=== PATIENT | female | born 1950 | race Caucasian/White ===

== ENCOUNTER 2016-03-22 10:06 | Inpatient (IN) | payer BC ==
[~2016-03-22] VITALS: Ht 165.1 cm; Wt 145.0 kg
[~2016-03-22 10:06] MED LIST: Colace PO; Diovan HCT 160/25 PO; Glucophage PO; Glucotrol XL PO; JANUVIA100 MG PO; LANTUS 3 M100 UNITS1 SC; Levothroid,Synthroid PO; Lovenox SC; METFORMIN HCL1000 MG PO; Milk Of Magnesia,MOM PO; NOVOLOG PE100 UNITS/ SC; PROAIR RESPICL90 MCG IH; Proventil,Ventolin H IH; VERAPAMIL ER200 MG PO; VERELAN PM PO; Vitamin D PO; Zocor PO
[2016-03-22 11:37] LABS: EOSINOPHIL (%) 2.2 % (0-5); EOSINOPHIL COUNT 0.1 K/uL (0-0.3); HEMATOCRIT 40.4 % (36.0-46.0); LYMPHOCYTE COUNT 0.7 K/uL (1.0-2.8); MCH 29.5 PG (29.0-34.0); MCHC 30.7 G/DL (30.0-36.0); MONOCYTE (%) 6.5 % (3-12); MONOCYTE COUNT 0.3 K/uL (0-0.8); NEUTROPHIL (%) 75.1 % (45-76); NEUTROPHIL COUNT 3.5 K/uL (1.8-6.4); PLATELET COUNT 99 K/uL (156-360); RBC DIS.WIDTH-CV 15.8 % (11.8-14.6); RBC DIS.WIDTH-SD 53.3 % (39-53); RED BLOOD COUNT 4.21 M/uL (3.80-5.20); WHITE BLOOD COUNT 4.6 K/uL (4.1-10.2)
[2016-03-22 11:47] LABS: CHLORIDE 99 mEq/L (99-109); SODIUM 138 mEq/L (136-147)
[2016-03-22 11:50] LABS: GLUCOSE 270 mg/dL (70-99)
[2016-03-22 11:51] LABS: ANION GAP 9 MEQ/L (2-14)
[2016-03-22 11:52] LABS: TOTAL BILIRUBIN 0.4 mg/dL (0.0-1.0)
[2016-03-22 11:53] LABS: ALKALINE PHOSPHATASE 75 IU/L (3-129); GFR ESTIMATE (CALCULATED) > 59 mL/min/
[2016-03-22 11:54] LABS: UREA NITROGEN (BUN) 14 mg/dL (9-23)
[2016-03-22 11:58] LABS: TROP-I INTERPRETATION NEGATIVE; TROPONIN-I < 0.01 ng/mL (0.0-0.30)
[2016-03-22] MEDS ORDERED: DIOVAN HCT 11 TABLE1 PO (14:07)
[2016-03-22] MEDS ORDERED: LANTUS 3 M100 UNITS1 SC (14:08)
[2016-03-22] MEDS ORDERED: LEVOTHYROXINE200 MC1 PO (14:09)
[2016-03-22] MEDS ORDERED: LEVOTHYROXINE25 MCG PO (14:10)
[2016-03-22] MEDS ORDERED: VERAPAMIL ER200 MG PO (14:11)
[2016-03-22] MEDS ORDERED: VITAMIN D-3 401 EACH PO (14:11)
[2016-03-22] MEDS ORDERED: SIMVASTATIN20 MG PO (14:12)
[2016-03-22] MEDS ORDERED: IBUPROFEN800 MG PO (14:12)
[2016-03-22] MEDS ORDERED: LASIX20 MG PO (14:13)
[2016-03-22] MEDS ORDERED: POTASSIUM CHLO10 ME4 PO (14:16)
[2016-03-22] MEDS ORDERED: REFRESH TEARS15 ML BOTH EYES (14:16)
[2016-03-22] MEDS ORDERED: Eye Drops BOTH EYES (14:18)
[2016-03-22] MEDS ORDERED: TYLENOL EXTRA500 MG PO (14:22)
[2016-03-22 17:20] VITALS: BP 149/83
[2016-03-22 20:02] VITALS: BP 177/74
[2016-03-23] VITALS: BP 136/77
[2016-03-23 03:41] LABS: INFLUENZA A VIRAL ANTIGEN NEGATIVE
[2016-03-23 03:42] LABS: INFLUENZA B VIRAL ANTIGEN NEGATIVE
[2016-03-23 04:00] VITALS: BP 137/63
[2016-03-23 08:14] LABS: INTERNAL CONTROL VALID? YES
[2016-03-23 08:55] LABS: EOSINOPHIL (%) 0 % (0-5); HEMATOCRIT 40.6 % (36.0-46.0); IMMATURE GRANULOCYTE (%) 0.2 % (0.0-0.7); LYMPHOCYTE COUNT 0.7 K/uL (1.0-2.8); MCHC 30.5 G/DL (30.0-36.0); MCV 95.1 FL (83-99); MEAN PLAT.VOLUME 10.9 uM^3 (9.5-12.4); MONOCYTE (%) 4.6 % (3-12); MONOCYTE COUNT 0.2 K/uL (0-0.8); NEUTROPHIL (%) 82.7 % (45-76); NEUTROPHIL COUNT 4.3 K/uL (1.8-6.4); PLATELET COUNT 121 K/uL (156-360); RBC DIS.WIDTH-CV 15.8 % (11.8-14.6); RBC DIS.WIDTH-SD 55.2 % (39-53); RED BLOOD COUNT 4.27 M/uL (3.80-5.20); WHITE BLOOD COUNT 5.2 K/uL (4.1-10.2)
[2016-03-23 09:20] LABS: ANION GAP 9 MEQ/L (2-14); CHLORIDE 99 MEQ/L (99-109); GFR ESTIMATE (CALCULATED) > 59 mL/min/; GLUCOSE 218 mg/dL (70-99); POTASSIUM 4.4 MEQ/L (3.7-5.4); SAMPLE HEMOLYSIS CHECK 0; SAMPLE ICTERIC CHECK 0; SAMPLE LIPEMIA CHECK 0; SODIUM 139 MEQ/L (136-147); UREA NITROGEN (BUN) 15 mg/dL (9-23)
[2016-03-23 10:00] VITALS: BP 145/71
[2016-03-23 12:00] VITALS: BP 133/67
[2016-03-23 16:00] VITALS: BP 137/71
[2016-03-23 19:33] VITALS: BP 131/60
[2016-03-24] VITALS: BP 153/79
[2016-03-24 04:00] VITALS: BP 131/60
[2016-03-24 07:26] LABS: ANION GAP 10 MEQ/L (2-14); CHLORIDE 100 MEQ/L (99-109); GFR ESTIMATE (CALCULATED) > 59 mL/min/; GLUCOSE 196 mg/dL (70-99); POTASSIUM 4.7 MEQ/L (3.7-5.4); SAMPLE HEMOLYSIS CHECK 0; SAMPLE ICTERIC CHECK 0; SAMPLE LIPEMIA CHECK 0; SODIUM 142 MEQ/L (136-147); UREA NITROGEN (BUN) 20 mg/dL (9-23)
[2016-03-24 07:31] VITALS: BP 145/73
[2016-03-24 08:09] LABS: POINT-OF-CARE METER ID UU14174225
[2016-03-24 12:15] VITALS: BP 142/71
[2016-03-24 12:44] LABS: ABS NEUTROPHIL COUNT 3.65; DELETE MACHINE DIFF? YES; MCH 29.6 PG (29.0-34.0); MCHC 31.3 G/DL (30.0-36.0); MCV 94.6 FL (83-99); MEAN PLAT.VOLUME 11.6 uM^3 (9.5-12.4); PLAT.SUFFICIENCY ADEQUATE; PLATELET COUNT 174 K/uL (156-360); RBC DIS.WIDTH-CV 15.9 % (11.8-14.6); RBC DIS.WIDTH-SD 54.7 % (39-53); RED BLOOD COUNT 4.23 M/uL (3.80-5.20); USER ID STC; WHITE BLOOD COUNT 4.1 K/uL (4.1-10.2)
[2016-03-24 15:36] VITALS: BP 133/58
[2016-03-24 20:00] VITALS: BP 169/63
[2016-03-25] VITALS: BP 156/75
[2016-03-25 04:00] VITALS: BP 134/64
[2016-03-25 07:37] LABS: ANION GAP 8 MEQ/L (2-14); CHLORIDE 98 MEQ/L (99-109); GFR ESTIMATE (CALCULATED) > 59 mL/min/; GLUCOSE 225 mg/dL (70-99); MAGNESIUM 2.4 mg/dl (1.3-2.7); POTASSIUM 4.9 MEQ/L (3.7-5.4); SAMPLE HEMOLYSIS CHECK 0; SAMPLE ICTERIC CHECK 0; SAMPLE LIPEMIA CHECK 0; SODIUM 139 MEQ/L (136-147); UREA NITROGEN (BUN) 24 mg/dL (9-23)
[2016-03-25 07:41] LABS: EOSINOPHIL (%) 0 % (0-5); HEMATOCRIT 43.4 % (36.0-46.0); IMMATURE GRANULOCYTE (%) 0.4 % (0.0-0.7); LYMPHOCYTE COUNT 1.1 K/uL (1.0-2.8); MCH 28.3 PG (29.0-34.0); MCHC 29.5 G/DL (30.0-36.0); MEAN PLAT.VOLUME 10.4 uM^3 (9.5-12.4); MONOCYTE COUNT 0.2 K/uL (0-0.8); NEUTROPHIL (%) 82.7 % (45-76); NEUTROPHIL COUNT 6.6 K/uL (1.8-6.4); PLATELET COUNT 134 K/uL (156-360); RBC DIS.WIDTH-CV 15.8 % (11.8-14.6); RBC DIS.WIDTH-SD 55.9 % (39-53); RED BLOOD COUNT 4.52 M/uL (3.80-5.20); WHITE BLOOD COUNT 7.9 K/uL (4.1-10.2)
[2016-03-25 08:12] VITALS: BP 124/62
[2016-03-25 08:18] LABS: POINT-OF-CARE METER ID UU14174225
[2016-03-25 12:09] VITALS: BP 126/62
[2016-03-25 15:59] VITALS: BP 150/80
[2016-03-25 17:27] LABS: POINT-OF-CARE METER ID UU14174225
[2016-03-25 19:41] VITALS: BP 161/90
[2016-03-25 21:05] LABS: POINT-OF-CARE METER ID UU14174225
[2016-03-26] VITALS: BP 141/76
[2016-03-26 04:00] VITALS: BP 144/80
[2016-03-26 07:34] VITALS: BP 134/75
[2016-03-26 07:40] LABS: POINT-OF-CARE METER ID UU14174225
[2016-03-26 11:12] LABS: POINT-OF-CARE METER ID UU14174225
[2016-03-26] MEDS ORDERED: ADVAIR HFA120 INHALA IH (11:15)
[2016-03-26] MEDS ORDERED: PREDNISONE10 MG PO (11:16)
[2016-03-26] MEDS ORDERED: LEVAQUIN500 MG PO (11:16)
[2016-03-26 11:20] VITALS: BP 139/74
[2016-03-26 15:55] VITALS: BP 173/84
[2016-03-26 19:51] VITALS: BP 146/78
[2016-03-26 20:34] LABS: POINT-OF-CARE METER ID UU14174225
[2016-03-27] VITALS: BP 133/63
[2016-03-27 04:02] VITALS: BP 121/67
[2016-03-27 07:59] VITALS: BP 143/72
[2016-03-27 11:54] VITALS: BP 148/82
[2016-03-27 16:40] VITALS: BP 152/82
[2016-03-27 20:00] VITALS: BP 160/743
[2016-03-27 22:14] LABS: POINT-OF-CARE METER ID UU14174225
[2016-03-28] VITALS: BP 140/63
[2016-03-28 04:27] VITALS: BP 154/78
[2016-03-28 07:31] LABS: EOSINOPHIL (%) 0 % (0-5); HEMATOCRIT 45.3 % (36.0-46.0); IMMATURE GRANULOCYTE (%) 0.1 % (0.0-0.7); MCH 27.7 PG (29.0-34.0); MCHC 29.6 G/DL (30.0-36.0); MCV 93.6 FL (83-99); MEAN PLAT.VOLUME 10.7 uM^3 (9.5-12.4); MONOCYTE (%) 3.7 % (3-12); MONOCYTE COUNT 0.3 K/uL (0-0.8); NEUTROPHIL (%) 85.3 % (45-76); NEUTROPHIL COUNT 7.8 K/uL (1.8-6.4); PLATELET COUNT 129 K/uL (156-360); RBC DIS.WIDTH-CV 15.3 % (11.8-14.6); RBC DIS.WIDTH-SD 52.4 % (39-53); RED BLOOD COUNT 4.84 M/uL (3.80-5.20); WHITE BLOOD COUNT 9.1 K/uL (4.1-10.2)
[2016-03-28 08:03] LABS: ANION GAP 6 MEQ/L (2-14); CHLORIDE 96 MEQ/L (99-109); GFR ESTIMATE (CALCULATED) > 59 mL/min/; GLUCOSE 188 mg/dL (70-99); SAMPLE HEMOLYSIS CHECK 0; SAMPLE ICTERIC CHECK 0; SAMPLE LIPEMIA CHECK 0; SODIUM 138 MEQ/L (136-147); UREA NITROGEN (BUN) 28 mg/dL (9-23)
[2016-03-28 08:04] VITALS: BP 114/65
[2016-03-28 10:50] LABS: POINT-OF-CARE METER ID UU14174225
[2016-03-28 11:07] VITALS: BP 141/72
[2016-03-28 15:15] VITALS: BP 138/72
[2016-03-28 16:08] LABS: POINT-OF-CARE METER ID UU14174225
[2016-03-28 19:48] VITALS: BP 160/75
[2016-03-29] VITALS: BP 154/71
[2016-03-29 03:53] VITALS: BP 144/72
[2016-03-29 07:00] LABS: EOSINOPHIL (%) 0 % (0-5); HEMATOCRIT 46.9 % (36.0-46.0); IMMATURE GRANULOCYTE (%) 0.3 % (0.0-0.7); LYMPHOCYTE COUNT 0.9 K/uL (1.0-2.8); MCH 29.1 PG (29.0-34.0); MCHC 30.9 G/DL (30.0-36.0); MCV 94.2 FL (83-99); MEAN PLAT.VOLUME 10.9 uM^3 (9.5-12.4); MONOCYTE (%) 2.2 % (3-12); MONOCYTE COUNT 0.2 K/uL (0-0.8); NEUTROPHIL (%) 88.4 % (45-76); NEUTROPHIL COUNT 9.1 K/uL (1.8-6.4); PLATELET COUNT 143 K/uL (156-360); RBC DIS.WIDTH-CV 15.3 % (11.8-14.6); RED BLOOD COUNT 4.98 M/uL (3.80-5.20); WHITE BLOOD COUNT 10.3 K/uL (4.1-10.2)
[2016-03-29 07:29] LABS: ANION GAP 10 MEQ/L (2-14); CHLORIDE 97 MEQ/L (99-109); GFR ESTIMATE (CALCULATED) > 59 mL/min/; GLUCOSE 197 mg/dL (70-99); MAGNESIUM 2.2 mg/dl (1.3-2.7); POTASSIUM 4.7 MEQ/L (3.7-5.4); SAMPLE HEMOLYSIS CHECK 0; SAMPLE ICTERIC CHECK 0; SAMPLE LIPEMIA CHECK 0; SODIUM 140 MEQ/L (136-147); UREA NITROGEN (BUN) 28 mg/dL (9-23)
[2016-03-29 07:45] VITALS: BP 138/76
[2016-03-29 11:56] VITALS: BP 143/79
== END 2016-03-29 15:14 | disposition home or self-care (01) | DRG 190 ==
LOC: EME 10:06 → 5SOUTH 13:22 → EDOF 13:22 → 5SOUTH 16:31
PROVIDERS: Emergency Medicine; Hospitalist; Internal Medicine
DX: J44.0 Chronic obstructive pulmonary disease with (acute) lower respiratory infection (principal); J18.1 Lobar pneumonia, unspecified organism; J96.01 Acute respiratory failure with hypoxia; J44.1 Chronic obstructive pulmonary disease with (acute) exacerbation; E87.2 Acidosis; E66.9 Obesity, unspecified; Z68.43 Body mass index [BMI] 50.0-59.9, adult; E11.9 Type 2 diabetes mellitus without complications; I10 Essential (primary) hypertension; E78.5 Hyperlipidemia, unspecified; E03.9 Hypothyroidism, unspecified; Z87.891 Personal history of nicotine dependence; Z79.4 Long term (current) use of insulin; Z85.828 Personal history of other malignant neoplasm of skin; Z90.710 Acquired absence of both cervix and uterus
CPT/HCPCS: 71010; 71020; 71275; 80048; 80053; 82948; 83605; 83735; 83880; 84100; 84484; 85025; 87040; 87070; 87205; 87449; 87502; 93005; 94640; 94640 76; 94760; 94799; 99202; 99281; 99285; J0456; J0696; J1650; J1815; J2920; J2930; J7030; J7050

== ENCOUNTER 2016-09-20 08:02 | Inpatient (IN) | payer OTHER, BC ==
[2016-09-20] VITALS (12 sets, daily range): BP systolic 105–160; BP diastolic 56–91
[~2016-09-20] VITALS: Ht 163.8 cm; Wt 143.1 kg
[~2016-09-20 08:02] MED LIST changes: +ADVAIR HFA120 INHALA IH; +DIOVAN HCT 11 TABLE1 PO; +Eye Drops BOTH EYES; +IBUPROFEN800 MG PO; +LASIX20 MG PO; +LEVAQUIN500 MG PO; +LEVOTHYROXINE200 MC1 PO; +LEVOTHYROXINE25 MCG PO; +POTASSIUM CHLO10 ME4 PO; +PREDNISONE10 MG PO; +REFRESH TEARS15 ML BOTH EYES; +SIMVASTATIN20 MG PO; +TYLENOL EXTRA500 MG PO; +VITAMIN D-3 401 EACH PO
[2016-09-20 08:46] LABS: HEMATOCRIT 41.1 % (36.0-46.0); MCH 27.5 PG (29.0-34.0); MCHC 29.4 G/DL (30.0-36.0); MCV 93.4 FL (83-99); MEAN PLAT.VOLUME 10.2 uM^3 (9.5-12.4); NRBC (%) 0.2 /100 WBC (0-0); PLATELET COUNT 126 K/uL (156-360); RBC DIS.WIDTH-CV 16.5 % (11.8-14.6); RBC DIS.WIDTH-SD 55.9 % (39-53); WHITE BLOOD COUNT 9.3 K/uL (4.1-10.2)
[2016-09-20 09:01] LABS: CHLORIDE 101 mEq/L (99-109); POTASSIUM 3.7 mEq/L (3.7-5.4); SODIUM 140 mEq/L (136-147)
[2016-09-20 09:02] LABS: GLUCOSE 228 mg/dL (70-99)
[2016-09-20] MEDS ORDERED: LEVEMIR FL100 UNIT/1 SC (09:03)
[2016-09-20 09:04] LABS: ANION GAP 8 MEQ/L (2-14)
[2016-09-20 09:06] LABS: GFR ESTIMATE (CALCULATED) > 59 mL/min/
[2016-09-20 09:07] LABS: UREA NITROGEN (BUN) 14 mg/dL (9-23)
[2016-09-20 09:09] LABS: TROP-I INTERPRETATION NEGATIVE; TROPONIN-I < 0.01 ng/mL (0.0-0.30)
[2016-09-20 09:26] LABS: EOSINOPHIL (%) 0.6 % (0-5); EOSINOPHIL COUNT 0.1 K/uL (0-0.3); IMMATURE GRANULOCYTE (%) 0.3 % (0.0-0.7); INSTRUMENT ABS NEUTROPHIL CT 7.2 K/uL; LYMPHOCYTE COUNT 1.2 K/uL (1.0-2.8); MONOCYTE (%) 8.5 % (3-12); MONOCYTE COUNT 0.8 K/uL (0-0.8); NEUTROPHIL (%) 77.3 % (45-76); NEUTROPHIL COUNT 7.2 K/uL (1.8-6.4)
[2016-09-20] MEDS ORDERED: ALAWAY10 ML BOTH EYES (11:20)
[2016-09-20] MEDS ORDERED: LANTUS 3 M100 UNITS1 SC (11:21)
[2016-09-20] MEDS ORDERED: PROAIR HFA8.5 GM IH (11:24)
[2016-09-20 15:10] LABS: TROP-I INTERPRETATION NEGATIVE; TROPONIN-I 0.02 ng/mL (0.0-0.30)
[2016-09-20 21:17] LABS: TROP-I INTERPRETATION NEGATIVE; TROPONIN-I 0.01 ng/mL (0.0-0.30)
[2016-09-21 03:36] VITALS: BP 147/70
[2016-09-21 05:52] LABS: HEMATOCRIT 41.3 % (36.0-46.0); MCH 27.4 PG (29.0-34.0); MCHC 29.1 G/DL (30.0-36.0); MCV 94.3 FL (83-99); MEAN PLAT.VOLUME 10.6 uM^3 (9.5-12.4); NRBC (%) 0.2 /100 WBC (0-0); PLATELET COUNT 145 K/uL (156-360); RBC DIS.WIDTH-CV 15.9 % (11.8-14.6); RBC DIS.WIDTH-SD 55.9 % (39-53); RED BLOOD COUNT 4.38 M/uL (3.80-5.20); WHITE BLOOD COUNT 9.6 K/uL (4.1-10.2)
[2016-09-21 06:19] LABS: ANION GAP 8 MEQ/L (2-14); CHLORIDE 100 MEQ/L (99-109); GFR ESTIMATE (CALCULATED) > 59 mL/min/; GLUCOSE 318 mg/dL (70-99); SAMPLE HEMOLYSIS CHECK 0; SAMPLE ICTERIC CHECK 0; SAMPLE LIPEMIA CHECK 0; SODIUM 139 MEQ/L (136-147); UREA NITROGEN (BUN) 20 mg/dL (9-23)
[2016-09-21 08:00] VITALS: BP 129/66
[2016-09-21 08:34] LABS: INTERNAL CONTROL VALID? YES
[2016-09-21 11:45] VITALS: BP 117/55
[2016-09-21 15:40] VITALS: BP 134/71
[2016-09-21 20:00] VITALS: BP 139/79
[2016-09-22 01:31] VITALS: BP 127/58
[2016-09-22 03:46] VITALS: BP 120/57
[2016-09-22 06:33] LABS: POINT-OF-CARE METER ID UU14162508
[2016-09-22 06:56] LABS: EOSINOPHIL (%) 0 % (0-5); HEMATOCRIT 37.8 % (36.0-46.0); IMMATURE GRANULOCYTE (%) 1.3 % (0.0-0.7); IMMATURE GRANULOCYTE COUNT 0.1 K/uL; INSTRUMENT ABS NEUTROPHIL CT 7.5 K/uL; MCH 27.5 PG (29.0-34.0); MCHC 29.6 G/DL (30.0-36.0); MCV 92.6 FL (83-99); MEAN PLAT.VOLUME 10.6 uM^3 (9.5-12.4); MONOCYTE (%) 3.3 % (3-12); MONOCYTE COUNT 0.3 K/uL (0-0.8); NEUTROPHIL (%) 84.6 % (45-76); NEUTROPHIL COUNT 7.5 K/uL (1.8-6.4); PLATELET COUNT 143 K/uL (156-360); RBC DIS.WIDTH-CV 15.9 % (11.8-14.6); RBC DIS.WIDTH-SD 54.2 % (39-53); RED BLOOD COUNT 4.08 M/uL (3.80-5.20); WHITE BLOOD COUNT 8.9 K/uL (4.1-10.2)
[2016-09-22 07:22] LABS: ANION GAP 9 MEQ/L (2-14); CHLORIDE 100 MEQ/L (99-109); GFR ESTIMATE (CALCULATED) > 59 mL/min/; GLUCOSE 266 mg/dL (70-99); MAGNESIUM 2.5 mg/dl (1.3-2.7); POTASSIUM 4.5 MEQ/L (3.7-5.4); SAMPLE HEMOLYSIS CHECK 0; SAMPLE ICTERIC CHECK 0; SAMPLE LIPEMIA CHECK 0; SODIUM 140 MEQ/L (136-147); UREA NITROGEN (BUN) 27 mg/dL (9-23)
[2016-09-22 07:50] VITALS: BP 139/74
[2016-09-22 11:43] LABS: POINT-OF-CARE METER ID UU14162508
[2016-09-22 11:54] VITALS: BP 171/74
[2016-09-22 15:59] VITALS: BP 141/76
[2016-09-22 19:43] VITALS: BP 135/63
[2016-09-22 21:09] LABS: POINT-OF-CARE METER ID UU14162508
[2016-09-23 00:07] VITALS: BP 158/75
[2016-09-23 04:23] VITALS: BP 154/74
[2016-09-23 06:55] LABS: POINT-OF-CARE METER ID UU14162508
[2016-09-23 07:30] VITALS: BP 117/73
[2016-09-23 07:56] LABS: EOSINOPHIL (%) 0 % (0-5); IMMATURE GRANULOCYTE (%) 1.9 % (0.0-0.7); IMMATURE GRANULOCYTE COUNT 0.2 K/uL; INSTRUMENT ABS NEUTROPHIL CT 7.9 K/uL; LYMPHOCYTE COUNT 1.2 K/uL (1.0-2.8); MCH 28.5 PG (29.0-34.0); MCHC 30.5 G/DL (30.0-36.0); MCV 93.5 FL (83-99); MEAN PLAT.VOLUME 10.5 uM^3 (9.5-12.4); MONOCYTE (%) 4.6 % (3-12); MONOCYTE COUNT 0.5 K/uL (0-0.8); NEUTROPHIL (%) 81.1 % (45-76); NEUTROPHIL COUNT 7.9 K/uL (1.8-6.4); PLATELET COUNT 153 K/uL (156-360); RBC DIS.WIDTH-SD 54.2 % (39-53); RED BLOOD COUNT 4.28 M/uL (3.80-5.20); WHITE BLOOD COUNT 9.7 K/uL (4.1-10.2)
[2016-09-23 08:22] LABS: ANION GAP 6 MEQ/L (2-14); CHLORIDE 101 MEQ/L (99-109); GFR ESTIMATE (CALCULATED) > 59 mL/min/; GLUCOSE 245 mg/dL (70-99); MAGNESIUM 2.5 mg/dl (1.3-2.7); POTASSIUM 4.8 MEQ/L (3.7-5.4); SAMPLE HEMOLYSIS CHECK 0; SAMPLE ICTERIC CHECK 0; SAMPLE LIPEMIA CHECK 0; SODIUM 141 MEQ/L (136-147); UREA NITROGEN (BUN) 27 mg/dL (9-23)
[2016-09-23 09:31] LABS: POINT-OF-CARE METER ID UU14162508
[2016-09-23 10:50] VITALS: BP 143/66
[2016-09-23 11:41] LABS: POINT-OF-CARE METER ID UU14162508
[2016-09-23 16:24] VITALS: BP 146/66
[2016-09-23 16:45] LABS: POINT-OF-CARE METER ID UU14162508
[2016-09-23 21:51] LABS: POINT-OF-CARE METER ID UU14162508
[2016-09-24 00:30] VITALS: BP 131/60
[2016-09-24 06:22] LABS: EOSINOPHIL (%) 0 % (0-5); HEMATOCRIT 40.5 % (36.0-46.0); IMMATURE GRANULOCYTE (%) 2.5 % (0.0-0.7); IMMATURE GRANULOCYTE COUNT 0.2 K/uL; LYMPHOCYTE COUNT 1.3 K/uL (1.0-2.8); MCH 27.8 PG (29.0-34.0); MCHC 29.9 G/DL (30.0-36.0); MCV 92.9 FL (83-99); MEAN PLAT.VOLUME 10.5 uM^3 (9.5-12.4); MONOCYTE (%) 4.3 % (3-12); MONOCYTE COUNT 0.4 K/uL (0-0.8); NEUTROPHIL (%) 78.5 % (45-76); PLATELET COUNT 138 K/uL (156-360); RBC DIS.WIDTH-CV 15.8 % (11.8-14.6); RBC DIS.WIDTH-SD 53.7 % (39-53); RED BLOOD COUNT 4.36 M/uL (3.80-5.20); WHITE BLOOD COUNT 8.9 K/uL (4.1-10.2)
[2016-09-24 06:41] LABS: ANION GAP 6 MEQ/L (2-14); CHLORIDE 100 MEQ/L (99-109); GFR ESTIMATE (CALCULATED) > 59 mL/min/; GLUCOSE 202 mg/dL (70-99); MAGNESIUM 2.6 mg/dl (1.3-2.7); POTASSIUM 5.4 MEQ/L (3.7-5.4); SAMPLE HEMOLYSIS CHECK 0; SAMPLE ICTERIC CHECK 0; SAMPLE LIPEMIA CHECK 0; SODIUM 142 MEQ/L (136-147); UREA NITROGEN (BUN) 27 mg/dL (9-23)
[2016-09-24 07:00] LABS: POINT-OF-CARE METER ID UU14162508
[2016-09-24 11:35] LABS: POINT-OF-CARE METER ID UU14162508
[2016-09-24 16:22] VITALS: BP 147/71
[2016-09-24 16:35] LABS: POINT-OF-CARE METER ID UU14162508
[2016-09-24 18:01] LABS: ANION GAP 11 MEQ/L (2-14); CHLORIDE 98 MEQ/L (99-109); GFR ESTIMATE (CALCULATED) > 59 mL/min/; GLUCOSE 293 mg/dL (70-99); POTASSIUM 4.5 MEQ/L (3.7-5.4); SAMPLE HEMOLYSIS CHECK 0; SAMPLE ICTERIC CHECK 0; SAMPLE LIPEMIA CHECK 0; SODIUM 139 MEQ/L (136-147); UREA NITROGEN (BUN) 29 mg/dL (9-23)
[2016-09-24 21:05] VITALS: BP 149/67
[2016-09-24 21:28] LABS: POINT-OF-CARE METER ID UU14162508
[2016-09-25 00:48] VITALS: BP 115/55
[2016-09-25 07:41] VITALS: BP 117/58
[2016-09-25] MEDS ORDERED: PREDNISONE20 MG PO (10:52)
[2016-09-25] MEDS ORDERED: AUGMENTIN875 MG PO (10:52)
[2016-09-25] MEDS ORDERED: GENTAMICIN SULFA5 ML BOTH EYES (10:52)
== END 2016-09-25 11:49 | disposition home or self-care (01) | DRG 190 ==
LOC: EME 08:02 → EDOF 11:14 → 2EAST 11:14 → EDOF 11:17 → 2EAST 13:30
PROVIDERS: Emergency Medicine; Internal Medicine
DX: J44.0 Chronic obstructive pulmonary disease with (acute) lower respiratory infection (principal); J15.4 Pneumonia due to other streptococci; J96.01 Acute respiratory failure with hypoxia; J44.1 Chronic obstructive pulmonary disease with (acute) exacerbation; E87.5 Hyperkalemia; E03.9 Hypothyroidism, unspecified; Z68.43 Body mass index [BMI] 50.0-59.9, adult; E66.01 Morbid (severe) obesity due to excess calories; E11.65 Type 2 diabetes mellitus with hyperglycemia; H10.9 Unspecified conjunctivitis; I11.9 Hypertensive heart disease without heart failure; E78.5 Hyperlipidemia, unspecified; Z79.4 Long term (current) use of insulin; Z90.710 Acquired absence of both cervix and uterus; Z87.891 Personal history of nicotine dependence; Z87.442 Personal history of urinary calculi
CPT/HCPCS: 71010; 71275; 80048; 80048 91; 82565; 82948; 83605; 83735; 83880; 84484; 84520; 85025; 85027; 87040; 87070; 87205; 87449; 93005; 94640; 94640 76; 94760; 94799; 99202; 99281; 99285; J0456; J0696; J1650; J1815; J2920; J2930; J7030; J7050; J7512

== ENCOUNTER → 2017-01-13 | Outpatient (CLI) | payer MEDICARE, BC ==
[~2017-01-13] MED LIST changes: +ALAWAY10 ML BOTH EYES; +AUGMENTIN875 MG PO; +GENTAMICIN SULFA5 ML BOTH EYES; +LEVEMIR FL100 UNIT/1 SC; +PREDNISONE20 MG PO; +PROAIR HFA8.5 GM IH
== END | disposition home or self-care (01) ==
LOC: CDC 11:24
DX: Z01.810 Encounter for preprocedural cardiovascular examination (principal); H35.342 Macular cyst, hole, or pseudohole, left eye; I45.10 Unspecified right bundle-branch block; R94.31 Abnormal electrocardiogram [ECG] [EKG]
CPT/HCPCS: 93000